=== PATIENT | male | born 1945 | race Caucasian/White ===

== ENCOUNTER 2016-08-08 23:08 | Emergency (ER) | payer BC, MEDICARE ==
[~2016-08-08] VITALS: Ht 170.2 cm; Wt 74.8 kg
[~2016-08-08 23:08] MED LIST: AMLO1CAP2 PO; ASPI81TA2 PO; METH20TA PO; PANT40TA2 PO
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
[2016-08-09 00:37] LABS: BASOPHILS % (AUTO) 0.2 % (0.0-2.0); EOSINOPHILS # (AUTO) 0.2 /CMM (0.0-0.7); EOSINOPHILS % (AUTO) 2.5 % (0.0-6.0); HEMATOCRIT 42 % (39-51); HEMOGLOBIN 14.1 g/dL (13.5-17.5); LYMPHOCYTES # (AUTO) 0.8 /CMM (0.8-4.8); LYMPHOCYTES % (AUTO) 10.1 % (20.0-44.0); MEAN CORPUSCULAR HEMOGLOBIN 31 PG (26.0-33.0); MEAN CORPUSCULAR HGB CONC 34 g/dl (31.0-36.0); MEAN CORPUSCULAR VOLUME 91 fL (80-96); MONOCYTES # (AUTO) 0.7 /CMM (0.1-1.30); MONOCYTES % (AUTO) 9.3 % (2.0-12.0); NEUTROPHILS % (AUTO) 77.9 % (43.0-81.0); PLATELET COUNT (AUTO) 177 /CMM (150-450); RDW COEFFICIENT OF VARIATION 13.9 (11.5-15.0); RED BLOOD CELL COUNT(AUTO) 4.63 MIL/uL (4.5-6.0); WHITE BLOOD COUNT (AUTO) 7.7 K/uL (4.3-11.0)
[2016-08-09 00:42] LABS: APPEARANCE,URINE CLEAR (CLEAR); BILIRUBIN,URINE NEGATIVE (NEGATIVE); BLOOD, URINE NEGATIVE Ery/uL (NEGATIVE); COLOR,URINE YELLOW (YELLOW); KETONES,URINE NEGATIVE (NEGATIVE); LEUKOCYTE ESTERASE ,URINE NEGATIVE (NEGATIVE); NITRITE, URINE NEGATIVE (NEGATIVE); PROTEIN,URINE NEGATIVE (NEGATIVE); UGLUCOSE NEGATIVE (NEGATIVE); UROBILINOGEN,URINE 0.2 EU/dL (0.2)
[2016-08-09 00:50] LABS: CALCIUM, SERUM 8.8 mg/dL (8.5-10.1); INR 1.02 (0.87-1.13); POTASSIUM 3.8 mmol/L (3.5-5.1); PROTHROMBIN TIME 10.9 SECS (9.5-12.7)
[2016-08-09 00:58] LABS: ALBUMIN 3.8 g/dL (3.4-5.0); BILIRUBIN,DIRECT 0.1 mg/dL (0.0-0.2); BILIRUBIN,TOTAL 0.4 mg/dL (0.2-1.0); TOTAL PROTEIN, SERUM 7.2 g/dL (6.4-8.2)
[2016-08-09] MEDS ORDERED: HYDROMORPHONE 1 MG/1 ML DISP.SYRIN ONE (01:39)
[2016-08-09] MEDS ORDERED: ONDANSETRON HCL/PF 4 MG/2 ML VIAL ONE (01:39)
[2016-08-09] MEDS ORDERED: IV SET PRIMARY 1 EA INFUS.SET MC ONE (01:51)
[2016-08-09] MEDS ORDERED: IV NS 0.9% 1,000 ML ONE (01:51)
[2016-08-09] MEDS ORDERED: IV NS 0.9% 1,000 ML BAG IV ONE (02:00)
[2016-08-09] MEDS ORDERED: HYDROMORPHONE 1 MG/1 ML DISP.SYRIN IV ONE (02:00)
[2016-08-09] MEDS ORDERED: ONDANSETRON HCL/PF 4 MG/2 ML VIAL IV ONE (02:00)
[2016-08-09] MEDS ORDERED: KETOROLAC TROMETHAMINE 15 MG/ML VIAL ONE (02:17)
[2016-08-09] MEDS ORDERED: IV NS 0.9% 250 ML IV ONE (02:54)
[2016-08-09] MEDS ORDERED: IOHEXOL-300 100 ML VIAL IV ONE (02:54)
[2016-08-09 04:53] VITALS: BP 144/86
--- NOTE | 2016-08-09 04:53 | NUR ---
Patient discharged to home in stable condition. Written and verbal after care instructions given. Patient verbalizes understanding of instruction. PT ambulatory with a steady gait IV removed. Catheter intact and site benign. Pressure and 4x4 applied to site. No bleeding noted.VITAL SIGNS WITHIN NORMAL LIMITS.
== END 2016-08-09 04:54 | disposition home or self-care (01) ==
LOC: ER 23:11
DX: C64.2 Malignant neoplasm of left kidney, except renal pelvis (principal); K40.90 Unilateral inguinal hernia, without obstruction or gangrene, not specified as recurrent; K57.30 Diverticulosis of large intestine without perforation or abscess without bleeding; K44.9 Diaphragmatic hernia without obstruction or gangrene; I10 Essential (primary) hypertension; Z79.82 Long term (current) use of aspirin; Z86.73 Personal history of transient ischemic attack (TIA), and cerebral infarction without residual deficits; Z88.0 Allergy status to penicillin
CPT/HCPCS: 36415; 74160; 74176; 80048; 80076; 81001; 83690; 85025; 85730; 96361; 96374; 96375; 99285; A4606 ×2; J1170; J1885; J2405; J7030; J7050; Q9967; 81000-TC; Z7610

== ENCOUNTER 2017-07-12 20:34 | Emergency (ER) | payer MEDICARE, OTHER ==
[~2017-07-12] VITALS: Ht 167.6 cm; Wt 68.0 kg
[~2017-07-12 20:34] MED LIST changes: +ASPI-1169 PO; -ASPI81TA2 PO
[2017-07-12 21:03] VITALS: BP 114/70
== END 2017-07-12 22:29 | disposition home or self-care (01) ==
LOC: ER 20:37
DX: R33.9 Retention of urine, unspecified (principal); I10 Essential (primary) hypertension; Z86.73 Personal history of transient ischemic attack (TIA), and cerebral infarction without residual deficits; Z88.0 Allergy status to penicillin; Z79.82 Long term (current) use of aspirin
CPT/HCPCS: 51702; 99284; A4606; Z7610

== ENCOUNTER 2017-07-13 19:48 | Emergency (ER) | payer MEDICARE ==
[~2017-07-13] VITALS: Ht 165.1 cm; Wt 81.6 kg
[2017-07-13 20:27] VITALS: BP 114/72
[2017-07-13 21:02] LABS: APPEARANCE,URINE Cloudy (CLEAR); BILIRUBIN,URINE MODERATE (NEGATIVE); BLOOD, URINE Large Ery/uL (NEGATIVE); COLOR,URINE Brown (YELLOW); KETONES,URINE Negative (NEGATIVE); LEUKOCYTE ESTERASE ,URINE Trace (NEGATIVE); NITRITE, URINE Negative (NEGATIVE); PROTEIN,URINE >=300 mg/dl (NEGATIVE); UGLUCOSE Negative (NEGATIVE); UROBILINOGEN,URINE 0.2 EU/dL (0.2)
[2017-07-13 21:22] LABS: BACTERIA,URINE Few /HPF (None Seen); MUCUS,URINE Few /LPF (None Seen); RBC,URINE TOO NUMEROUS TO COUN /HPF (0-2); SQUAMOUS EPITHELIAL CELL,UR Few /HPF (None Seen); URINE AMORPHOUS URATE Moderate /HPF (None Seen)
== END 2017-07-13 21:52 | disposition home or self-care (01) ==
LOC: ER 19:59
DX: Z48.89 Encounter for other specified surgical aftercare (principal); I10 Essential (primary) hypertension; Z86.73 Personal history of transient ischemic attack (TIA), and cerebral infarction without residual deficits; Z88.0 Allergy status to penicillin; Z79.82 Long term (current) use of aspirin
CPT/HCPCS: 81000-TC; 87086-TC; A4606; Z7610

== ENCOUNTER 2017-07-15 20:30 | Emergency (ER) | payer MEDICARE ==
[~2017-07-15] VITALS: Ht 170.2 cm; Wt 68.0 kg
[2017-07-15] MEDS ORDERED: ONDANSETRON HCL/PF 4 MG/2 ML VIAL ONE (21:02)
[2017-07-15] MEDS ORDERED: HYDROMORPHONE INJ 2 MG/ML DISP.SYRIN ONE (21:03)
[2017-07-15 21:04] LABS: BASOPHILS % (AUTO) 0.5 % (0.0-2.0); EOSINOPHILS % (AUTO) 2.5 % (0.0-6.0); HEMATOCRIT 39 % (39-51); HEMOGLOBIN 13.5 g/dL (13.5-17.5); LYMPHOCYTES # (AUTO) 0.8 /CMM (0.8-4.8); LYMPHOCYTES % (AUTO) 14.2 % (20.0-44.0); MEAN CORPUSCULAR HGB CONC 35 g/dl (31.0-36.0); MEAN CORPUSCULAR VOLUME 91 fL (80-96); MONOCYTES # (AUTO) 0.5 /CMM (0.1-1.30); MONOCYTES % (AUTO) 9.2 % (2.0-12.0); NEUTROPHILS # (AUTO) 4.4 /CMM (1.8-8.9); NEUTROPHILS % (AUTO) 73.6 % (43.0-81.0); PLATELET COUNT (AUTO) 175 /CMM (150-450); RDW COEFFICIENT OF VARIATION 13.4 (11.5-15.0); RED BLOOD CELL COUNT(AUTO) 4.32 MIL/uL (4.5-6.0); WHITE BLOOD COUNT (AUTO) 5.8 K/uL (4.3-11.0)
--- NOTE | 2017-07-15 21:10 | NUR ---
GRACE AT [facility] TO MEDICATE PT.
[2017-07-15] MEDS: IV NS 0.9% 1,000 ML BAG IV ONE (21:11)
[2017-07-15] MEDS: HYDROMORPHONE INJ 2 MG/ML DISP.SYRIN IV ONE (21:11)
[2017-07-15] MEDS: ONDANSETRON HCL/PF 4 MG/2 ML VIAL IVP ONE (21:13)
[2017-07-15 21:20] LABS: INR 0.97 (0.85-1.15)
[2017-07-15 21:21] LABS: ALBUMIN 3.8 g/dL (3.4-5.0); BILIRUBIN,DIRECT 0.2 mg/dL (0.0-0.2); CALCIUM, SERUM 9.2 mg/dL (8.5-10.1); CREATININE 1.6 mg/dL (0.6-1.3); POTASSIUM 3.8 mmol/L (3.5-5.1); TOTAL PROTEIN, SERUM 7.6 g/dL (6.4-8.2)
[2017-07-15 23:05] LABS: APPEARANCE,URINE CLEAR (CLEAR); BILIRUBIN,URINE NEGATIVE (NEGATIVE); BLOOD, URINE TRACE-INTA Ery/uL (NEGATIVE); COLOR,URINE YELLOW (YELLOW); KETONES,URINE NEGATIVE (NEGATIVE); LEUKOCYTE ESTERASE ,URINE NEGATIVE (NEGATIVE); NITRITE, URINE NEGATIVE (NEGATIVE); PROTEIN,URINE NEGATIVE (NEGATIVE); UGLUCOSE NEGATIVE (NEGATIVE); UROBILINOGEN,URINE 0.2 EU/dL (0.2)
[2017-07-15 23:11] LABS: BACTERIA,URINE Few /HPF (None Seen); SQUAMOUS EPITHELIAL CELL,UR Rare /HPF (None Seen); WBC,URINE 0-3 /HPF (0-3)
--- NOTE | 2017-07-15 23:23 | NUR ---
IV removed. Catheter intact and site benign. Pressure and 4x4 applied to site. No bleeding noted. Patient discharged to home in stable condition. Written and verbal after care instructions given. Patient verbalizes understanding of instruction. ambulatory with a steady gait noted. pt aaox4 no acute distress noted, resp even and unlabored. pt at bedside to take pt home.
[2017-07-15 23:26] VITALS: BP 127/73
== END 2017-07-15 23:26 | disposition home or self-care (01) ==
LOC: ER 20:32
DX: R10.32 Left lower quadrant pain (principal); I10 Essential (primary) hypertension; Z79.82 Long term (current) use of aspirin; Z86.73 Personal history of transient ischemic attack (TIA), and cerebral infarction without residual deficits; Z88.0 Allergy status to penicillin; Z60.2 Problems related to living alone; Z98.890 Other specified postprocedural states
CPT/HCPCS: 36415; 80048-TC; 80076-TC; 81000-TC; 83690-TC; 85025-TC; 85730-TC; A4606; J1170; J2405; J7030; Z7610

== ENCOUNTER 2017-07-19 20:36 | Emergency (ER) | payer MEDICARE ==
[2017-07-19] MEDS ORDERED: IV NS 0.9% 1,000 ML BAG IV ONE (23:30)
== END 2017-07-20 00:17 | disposition home or self-care (01) ==
DX: H53.9 Unspecified visual disturbance (principal); R51 Headache; Z86.73 Personal history of transient ischemic attack (TIA), and cerebral infarction without residual deficits; Z88.0 Allergy status to penicillin; Z98.890 Other specified postprocedural states; Z60.2 Problems related to living alone; Z79.82 Long term (current) use of aspirin

== ENCOUNTER 2021-04-01 22:30 | Emergency (ER) | payer BC, MEDICARE ==
[~2021-04-01] VITALS: Ht 167.6 cm; Wt 70.3 kg
[2021-04-01 23:23] VITALS: BP 138/80
[2021-04-01] MEDS ORDERED: DOXY100T2 PO (23:43)
[2021-04-01] MEDS ORDERED: IBUPROFEN 400 MG TABLET ONE (23:47)
[2021-04-01] MEDS ORDERED: DOXYCYCLINE HYCLATE (100 MG) 100 MG TABLET ONE (23:47)
[2021-04-01] MEDS ORDERED: ACETAMINOPHEN ES 500 MG TABLET ONE (23:56)
[2021-04-02] MEDS ORDERED: IBUPROFEN 400 MG TABLET PO ONE
[2021-04-02] MEDS ORDERED: DOXYCYCLINE HYCLATE (100 MG) 100 MG TABLET PO ONE
--- NOTE | 2021-04-02 00:09 | NUR ---
Patient discharged to home in stable condition. Written and verbal after care instructions given. Patient verbalizes understanding of instruction. Pt ambulatory with a steady gait
[2021-04-02] MEDS ORDERED: ACETAMINOPHEN ES 500 MG TABLET PO ONE (00:30)
== END 2021-04-02 00:18 | disposition home or self-care (01) ==
LOC: ER 22:33
DX: S61.451A Open bite of right hand, initial encounter (principal); L03.113 Cellulitis of right upper limb; I10 Essential (primary) hypertension; Z98.890 Other specified postprocedural states; Z88.0 Allergy status to penicillin; Z60.2 Problems related to living alone; Z79.899 Other long term (current) drug therapy; Z79.82 Long term (current) use of aspirin; W55.01XA Bitten by cat, initial encounter; Y93.89 Activity, other specified; Y92.89 Other specified places as the place of occurrence of the external cause; Y99.8 Other external cause status

== ENCOUNTER 2021-08-23 14:10 | Emergency (ER) | payer BC ==
[~2021-08-23] VITALS: Ht 167.6 cm; Wt 68.9 kg
[~2021-08-23 14:10] MED LIST changes: +DOXY100T2 PO
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
[2021-08-23] MEDS: IBUPROFEN 400 MG TABLET PO ONE (17:33)
[2021-08-23] MEDS ORDERED: IBUPROFEN 400 MG TABLET ONE (17:33)
[2021-08-23] MEDS ORDERED: LIDOCAINE 1% INJ 50 ML MDV IJ ONE (17:34)
[2021-08-23] MEDS: LIDOCAINE HCL/PF 1% 30 ML VIAL TP ONE (17:35)
[2021-08-23 18:45] VITALS: BP 132/80
== END 2021-08-23 18:46 | disposition home or self-care (01) ==
LOC: ER 14:28
DX: S62.622A Displaced fracture of middle phalanx of right middle finger, initial encounter for closed fracture (principal); I10 Essential (primary) hypertension; Z88.0 Allergy status to penicillin; Z60.2 Problems related to living alone; Z79.899 Other long term (current) drug therapy; W18.30XA Fall on same level, unspecified, initial encounter; Y93.89 Activity, other specified; Y92.89 Other specified places as the place of occurrence of the external cause; Y99.8 Other external cause status
CPT/HCPCS: 26742; 73140 ×2; 99284; J3490 ×2

== ENCOUNTER 2023-12-21 00:08 | Emergency (ER) | payer OTHER ==
[~2023-12-21] VITALS: Ht 170.2 cm; Wt 71.7 kg
[2023-12-21 04:04] VITALS: BP 138/81; TEMP 98.1; O2SAT 98
== END 2023-12-21 04:04 | disposition home or self-care (01) ==
LOC: ER 00:15
DX: M79.89 Other specified soft tissue disorders (principal); I10 Essential (primary) hypertension; Z88.0 Allergy status to penicillin; Z98.890 Other specified postprocedural states
CPT/HCPCS: 73080-TC; 93971-TC

== ENCOUNTER 2023-12-22 23:55 | Emergency (ER) | payer OTHER ==
[~2023-12-22] VITALS: Ht 170.2 cm; Wt 102.1 kg
[2023-12-23 01:56] LABS: BASOPHILS % (AUTO) 0.7 % (0.0-2.0); EOSINOPHILS # (AUTO) 0.2 K/uL (0.0-0.7); EOSINOPHILS % (AUTO) 3.6 % (0.0-6.0); HEMATOCRIT 36 % (39-51); HEMOGLOBIN 12.1 g/dL (13.5-17.5); LYMPHOCYTES # (AUTO) 1.1 K/uL (0.8-4.8); LYMPHOCYTES % (AUTO) 18.9 % (20.0-44.0); MEAN CORPUSCULAR HEMOGLOBIN 31 PG (26.0-33.0); MEAN CORPUSCULAR HGB CONC 34 g/dl (31.0-36.0); MEAN CORPUSCULAR VOLUME 91 fL (80-96); MONOCYTES # (AUTO) 0.6 K/uL (0.1-1.30); MONOCYTES % (AUTO) 10.6 % (2.0-12.0); NEUTROPHILS # (AUTO) 3.9 K/uL (1.8-8.9); NEUTROPHILS % (AUTO) 66.2 % (43.0-81.0); PLATELET COUNT (AUTO) 139 K/uL (150-450); RED BLOOD CELL COUNT(AUTO) 3.91 MIL/uL (4.5-6.0); RED CELL DISTRIBUTION WIDTH 14.6 % (11.5-15.0); WHITE BLOOD COUNT (AUTO) 5.8 K/uL (4.3-11.0)
[2023-12-23 02:15] LABS: ALANINE AMINOTRANSFERASE 15 U/L (12-78); ALBUMIN 3.5 g/dL (3.4-5.0); ALKALINE PHOSPHATASE 118 U/L (46-116); ASPARTATE AMINOTRANSFERASE 12 U/L (15-37); BILIRUBIN,TOTAL 0.3 mg/dL (0.2-1.0); C-REACTIVE PROTEIN < 0.20 mg/dL (0.0-0.30); CALCIUM, SERUM 8.7 mg/dL (8.5-10.1); CARBON DIOXIDE 23 mmol/L (21-32); CHLORIDE 111 mmol/L (98-107); CREATININE 2.1 mg/dL (0.6-1.3); GLUCOSE 101 mg/dL (74-106); SODIUM SERUM 142 mmol/L (136-145); TOTAL PROTEIN, SERUM 6.9 g/dL (6.4-8.2); UREA NITROGEN, BLOOD 31 mg/dL (7-18); URIC ACID 8.3 mg/dL (2.6-7.2)
[2023-12-23] MEDS ORDERED: CLINDAMYCIN 900 MG/6 ML VIAL ONE (02:54)
[2023-12-23] MEDS: CLINDAMYCIN PHOSPHATE IV 600 MG/4 ML VIAL IV ONE (03:00)
[2023-12-23] MEDS ORDERED: CLIN300C12 PO (07:23)
[2023-12-23 09:24] VITALS: BP 135/85; O2SAT 98
== END 2023-12-23 09:10 | disposition home or self-care (01) ==
LOC: ER 12-23 01:05
DX: L03.113 Cellulitis of right upper limb (principal); M79.89 Other specified soft tissue disorders; I10 Essential (primary) hypertension; I25.10 Atherosclerotic heart disease of native coronary artery without angina pectoris; Z86.73 Personal history of transient ischemic attack (TIA), and cerebral infarction without residual deficits; Z88.0 Allergy status to penicillin; Z90.5 Acquired absence of kidney; Z60.2 Problems related to living alone; Z79.82 Long term (current) use of aspirin
CPT/HCPCS: 99285; 96374; 85025; 87040; 84550; 36415; 80053; 86140; J3490

== ENCOUNTER 2024-10-08 09:19 | Emergency (ER) | payer BC, OTHER ==
[~2024-10-08] VITALS: Ht 167.6 cm; Wt 71.7 kg
[~2024-10-08 09:19] MED LIST changes: +CLIN300C12 PO
[2024-10-08] MEDS ORDERED: METR500T PO (09:30)
[2024-10-08] MEDS ORDERED: DOXY100C2 PO (09:30)
[2024-10-08] MEDS ORDERED: TDAP [DIPH/PERTUSSIS/TET] 0.5 ML VIAL IM ONE (09:38)
[2024-10-08] MEDS: TDAP [DIPH/PERTUSSIS/TET] 0.5 ML VIAL IM ONE (09:44)
[2024-10-08 10:45] VITALS: BP 150/91; TEMP 97.8; O2SAT 96
== END 2024-10-08 10:45 | disposition home or self-care (01) ==
LOC: ER 09:28
DX: S51.831A Puncture wound without foreign body of right forearm, initial encounter (principal); I10 Essential (primary) hypertension; Z79.82 Long term (current) use of aspirin; Z86.73 Personal history of transient ischemic attack (TIA), and cerebral infarction without residual deficits; Z88.0 Allergy status to penicillin; W54.0XXA Bitten by dog, initial encounter; Y93.89 Activity, other specified; Y92.89 Other specified places as the place of occurrence of the external cause; Y99.8 Other external cause status
CPT/HCPCS: 73090-TC; 90715